=== PATIENT | female | born 1990 | race Caucasian/White ===

== ENCOUNTER 2018-08-08 02:48 | Emergency (ER) | payer MEDICAID, OTHER ==
[~2018-08-08] VITALS: Ht 165.1 cm; Wt 60.0 kg
[~2018-08-08 02:48] MED LIST: ALBU18HF INH
--- NOTE | 2018-08-08 03:00 | NUR ---
BIB [facility] POLICE DEPT FOR C/O VAGINAL BLEEDING THAT STARTED AT 0200 TODAY, PT STATED POSSIBLE MISCARRIAGE. PT WAS SEEN AT [facility] FOR LEG PAIN BUT PT FORGOT TO HAVE THEM CHECK HER FOR . PT RESTING ON GURNEY, MONITORS APPLIED, SIDERAILS UP X2, PD X2 AT BEDSIDE, CALL LIGHT WITHIN REACH
--- NOTE | 2018-08-08 03:16 | NUR ---
provided pt with urine cup for sample, pt stated she is unable to void at this time
[2018-08-08 03:17] LABS: BASOPHILS # (AUTO) 0.04 x10^3/uL (0-0.1); BASOPHILS % (AUTO) 1 % (0-1); EOSINOPHILS # (AUTO) 0.16 x10^3/uL (0-0.4); EOSINOPHILS % (AUTO) 2 % (1-7); LYMPHOCYTES % (AUTO) 29 % (22-44); MD NO; MEAN CORPUSCULAR HEMOGLOBIN 30.6 pg (27.0-34.8); MEAN CORPUSCULAR HGB CONC 34.3 g/dL (32.4-35.8); MEAN CORPUSCULAR VOLUME 89.3 fL (80-100); MONOCYTES # (AUTO) 0.91 x10^3/uL (0.2-0.8); MONOCYTES % (AUTO) 12 % (2-9); NEUTROPHILS # (AUTO) 4.14 x10^3/uL (1.8-6.8); NEUTROPHILS % (AUTO) 56 % (42-75); PLATELET COUNT 249 x10^3/uL (130-400); RED BLOOD COUNT 4.34 x10^6/uL (3.82-5.3); RED CELL DISTRIBUTION WIDTH 13.3 % (9.6-15.2)
[2018-08-08 03:29] LABS: ALANINE AMINOTRANSFERASE 16 U/L (12-78); ALBUMIN 3.7 g/dL (3.4-5.0); ANION GAP 5 mmol/L (5-15); CALCIUM 8.7 mg/dL (8.5-10.1); CHLORIDE 106 mmol/L (98-107); CREATININE 0.76 mg/dL (0.55-1.02)
--- NOTE | 2018-08-08 03:34 | NUR ---
PT UP TO RR WITH STEADY GAIT FOR URINE SAMPLE, OFFICER AT PT'S SIDE
--- NOTE | 2018-08-08 03:38 | NUR ---
pt resting on g[place] stated " i can't pee", monitors reapplied, call light within reach
[2018-08-08 03:50] LABS: ALKALINE PHOSPHATASE 55 U/L (45-117); BILIRUBIN,TOTAL 0.2 mg/dL (0.2-1.0); TOTAL PROTEIN 6.7 g/dL (6.4-8.2)
--- NOTE | 2018-08-08 03:50 | NUR ---
PT TO ULTRASOUND
--- NOTE | 2018-08-08 04:12 | NUR ---
URINE SAMPLE TAKEN TO LAB
[2018-08-08 04:32] LABS: AMPHETAMINE SCREEN, URINE Positive (Negative); BARBITURATE SCREEN, URINE Negative (Negative); BENZODIAZEPINE SCREEN, URINE Negative (Negative); CANNABINOID SCREEN, URINE Positive (Negative); COCAINE SCREEN, URINE Negative (Negative); METHADONE SCREEN, URINE Negative (Negative); OPIATE SCREEN, URINE Negative (Negative)
[2018-08-08 04:45] VITALS: BP 107/61
--- NOTE | 2018-08-08 04:46 | NUR ---
PT RESTING ON [place], MONITORS IN PLACE, CALL LIGHT WITHIN REACH. AWAITING ULTRASOUND RESULT
--- NOTE | 2018-08-08 05:00 | NUR ---
ULTRASOUND CALLED REGARDING RESULTS, NOTIFIED THAT RESULT WILL BE UP IN 15 MINS, PA UPDATED
[2018-08-08 05:08] LABS: MICROSCOPIC INDICATED
[2018-08-08 05:11] LABS: CULTURE INDICATED? NO
== END 2018-08-08 06:00 | disposition home or self-care (01) ==
LOC: ED 03:32
DX: O20.0 Threatened abortion (principal); O99.331 Smoking (tobacco) complicating pregnancy, first trimester; F11.20 Opioid dependence, uncomplicated; F15.20 Other stimulant dependence, uncomplicated
CPT/HCPCS: 36415; 76801; 80053; 80307; 81001; 84702; 85025; 86901; 99284

== ENCOUNTER → 2018-09-24 | Outpatient (CLI) | payer OTHER, MEDICAID | END | disposition home or self-care (01) | LOC: RAD 08:29 | PROVIDERS: ATTEND Obstetrics & Gynecology | DX: O02.0 Blighted ovum and nonhydatidiform mole (principal); Z3A.12 12 weeks gestation of pregnancy | CPT/HCPCS: 76830 ==

== ENCOUNTER 2018-11-27 08:20 | Outpatient (CLI) | payer OTHER, MEDICAID | END 2018-11-27 23:59 | disposition home or self-care (01) | LOC: RAD 08:20 | PROVIDERS: ATTEND Obstetrics & Gynecology | DX: O26.872 Cervical shortening, second trimester (principal); Z3A.21 21 weeks gestation of pregnancy | CPT/HCPCS: 76805 ==